=== PATIENT | female | born 2005 | race Caucasian/White ===

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

== ENCOUNTER 2025-02-18 16:49 | Emergency (ER) | payer BC ==
[2025-02-18 17:06] VITALS: RESP 18; TEMP 98.3
[2025-02-18 18:33] LABS: Mucus,Urine Few /hpf; RBC,Urine 8 /hpf (0-5); Squamous Epithelial Cell,Urine 8 /hpf (0-4); WBC,Urine >182 /hpf (0-5)
[2025-02-18 18:35] LABS: Appearance,Urine Turbid (Clear); Color,Urine Dark Orange
--- NOTE | 2025-02-18 19:12 | US ---
EXAMINATION TYPE: US abd limited kidneys/bladder DATE OF EXAM: 02/18/2025 COMPARISON: NONE CLINICAL INDICATION: Female, 19 years old with history of ruq pain; back pain/ bladder pain TECHNIQUE: Grayscale and color Doppler imaging of the right upper quadrant including the kidneys and urinary bladder. FINDINGS: EXAM MEASUREMENTS: Liver Length: 16.0 cm WNL (Fabian lobe) Gallbladder Wall: 0.1 cm CBD: 0.2 cm Right Kidney: 9.9x5.0x5.0 cm Left Kidney: 10.1x4.6x4.4 cm Pancreas: Tail obscured by overlying bowel gas Liver: wnl Gallbladder: contracted, wnl as best visualized CBD: wnl Right Kidney: wnl Left Kidney: wnl Bladder: limited examination due to undistended bladder, however, the wall may be thickened and exhi bits hypervascularity. Correlate with urinalysis ?bladder infection? [employer] NOTES: IMPRESSION: Thickened bladder wall with vascularity correlate with urinalysis. No other evidence for acute abdominal process. [facility], , 02/18/2025 7:10 PM
[2025-02-18] MEDS: SODIUM CHLORIDE 0.9% 1,000 ML IV ONE (19:24)
[2025-02-18] MEDS: ONDANSETRON 4 MG/2 ML VIAL IVP STA (19:24)
[2025-02-18] MEDS: KETOROLAC 15 MG/ML 1 ML VIAL IVP STA (19:24)
--- NOTE | 2025-02-18 19:24 | ED ---
General Adult HPI - General Chief complaint: Abdominal Pain Stated complaint: abd pain, Back pain, nausea Time Seen by Provider: 02/18/25 18:01 Source: patient, RN notes reviewed, old records reviewed Mode of arrival: ambulatory Limitations: no limitations - History of Present Illness Initial comments: Patient is a 19-year-old female presents emergency department complaining of abdominal pain with dysuria. Has a history of recurrent UTIs and thinks that might be going on but is uncertain if this is a kidney infection. Also is concerned regarding her gallbladder she is having intermittent right upper quadrant abdominal pain. Denies any vaginal discharge or bleeding. Does not believe she is . Denies any nausea or vomiting. States that the pain started again yesterday and is got worse today. Endorses some intermittent nausea but no emesis. Denies diarrhea. Denies constipation. Denies any abdominal surgeries. Presents for further evaluation at this time. - Related Data Previous Rx's Medication Instructions Recorded Levofloxacin [Levaquin] 500 mg PO DAILY 5 Days #5 tab 02/06/24 Ondansetron Odt [Zofran Odt] 4 mg PO Q8HR PRN #15 tab 02/06/24 Phenazopyridine [Pyridium] 200 mg PO TID PRN #9 tablet 02/06/24 Ciprofloxacin HCl [Cipro] 500 mg PO DAILY 5 Days #5 tab 02/18/25 Allergies Allergy/AdvReac Type Severity Reaction Status Date / Time Penicillins AdvReac Anaphylaxis Verified 02/18/25 17:06 Review of Systems ROS Statement: Those systems with pertinent positive or pertinent negative responses have been documented in the HPI. Review of Systems: CONST: Denies fever EYES: Denies blurry vision ENT: Denies nasal congestion C/V: Denies Chest pain RESP: Denies shortness of breath GI: Endorses abdominal pain : Endorses dysuria SKIN: Denies rash. MSK: Denies joint pain. NEURO: Denies headache ROS Other: All systems not noted in ROS Statement are negative. Past Medical History Past Medical History: No Reported History History of Any Multi-Drug Resistant Organisms: None Reported Past Surgical History: No Surgical Hx Reported Past Psychological History: Depression Smoking Status: Never smoker Past Alcohol Use History: None Reported Past Drug Use History: None Reported General Exam - General Exam Comments Initial Comments: General: Appears in no acute distress. HEAD: Normal with no signs of head trauma. EYES: EOMI ENT: Hearing grossly intact RESPIRATORY: Clear breath sounds bilaterally. No wheezes, rales, or rhonchi. C/V: Regular rate and rhythm. S1 and S2 auscultated, peripheral pulses 2+ and intact throughout ABD: Abdomen soft, nondistended. Mildly tender to palpation in the suprapubic region. No significant tenderness palpation right upper quadrant. No flank tenderness. No guarding. No rebound tenderness. No peritoneal signs. No CVA tenderness to percussion. EXT: Normal range of motion, no obvious deformity SKIN: No rashes or lesions observed on exposed skin. NEURO: Alert and oriented x 4. Limitations: no limitations Course Vital Signs 02/18/25 02/18/25 17:05 19:54 Temperature 98.3 F Pulse Rate 82 74 Respiratory 18 18 Rate Blood Pressure 115/78 111/80 O2 Sat by Pulse 99 100 Oximetry Medical Decision Making - Medical Decision Making Was pt. sent in by a medical professional or institution (, PA, [employer], urgent care, hospital, or fpc...) When possible be specific @ -No Did you speak to anyone other than the patient for history (EMS, parent, family, police, friend...)? What history was obtained from this source @ -No Did you review nursing and triage notes (agree or disagree)? Why? @ -I reviewed and agree with nursing and triage notes Were old charts reviewed (outside hosp., previous admission, EMS record, old EKG, old radiological studies, urgent care reports/EKG's, fpc records)? Report findings @ -No old charts were reviewed Differential Diagnosis (chest pain, altered mental status, abdominal pain women, abdominal pain men, vaginal bleeding, weakness, fever, dyspnea, syncope, headache, dizziness, GI bleed, back pain, seizure, CVA, palpatations, mental health, musculoskeletal)? @ -Differential Abdominal Pain Women: Appendicitis, Cholecystitis, diverticulosis, ischemic bowel, pancreatitis, hepatitis, UTI, gastroenteritis, AAA, incarcerated hernia, bowel obstruction, constipation, inflammatory bowel, hepatitis, peptic ulcer disease, splenic infarction, perforated viscus, vulvitis, ovarian torsion, PID, kidney stone, placenta abruption, this is not meant to be an all-inclusive list EKG interpreted by me (3pts min.). @ -None done X-rays interpreted by me (1pt min.). @ -None done CT interpreted by me (1pt min.). @ -None done U/S interpreted by me (1pt. min.). @ -Ultrasound of the abdomen negative for any obvious acute gallbladder pathology. Patient does have some bladder wall thickening suggestive of cystitis. No other obvious finding. What testing was considered but not performed or refused? (CT, X-rays, U/S, labs)? Why? @ -Considered laboratory studies to look at function of abdominal organs. Patient initially was amenable to obtaining IV start with labs however she decided against it and does not want an IV. I believe this is reasonable. What meds were considered but not given or refused? Why? @ -None Did you discuss the management of the patient with other professionals (professionals i.e. , PA, [employer], lab, RT, psych nurse, social secretary, bioprocessing manufacturing technician, teacher, preventive medicine officer, family caseworker)? Give summary @ -No Was smoking cessation discussed for >3mins.? @ -No Was critical care preformed (if so, how long)? @ -No Were there social determinants of health that impacted care today? How? (Homelessness, low income, unemployed, alcoholism, drug addiction, transportation, low edu. Level, literacy, decrease access to med. care, fci, rehab)? @ -No Was there de-escalation of care discussed even if they declined (Discuss DNR or withdrawal of care, Hospice)? DNR status @ -No What co-morbidities impacted this encounter? (DM, HTN, Smoking, COPD, CAD, Cancer, CVA, ARF, Chemo, Hep., AIDS, mental health diagnosis, sleep apnea, morbid obesity)? @ -None Was patient admitted / discharged? Hospital course, mention meds given and route, prescriptions, significant lab abnormalities, going to OR and other pertinent info. @ -Patient presents for what is likely UTI versus possible pyelonephritis. She is having dysuria with some worsening suprapubic abdominal discomfort with intermittent back pain. Has a history of this. She is also worried regarding her gallbladder. Will obtain ultrasounds of the bladder, kidneys, gallbladder. We also obtain abdominal laboratory studies. She will be symptomatically treated with IV fluids and analgesia medications. She was in agreement this plan. Vitals are within acceptable limits. Patient who was initially amenable to obtaining laboratory studies changed her mind and does not want an IV started. I am agreeable. Will obtain urine studies and ultrasounds. Urinalysis concerning for UTI. She is not . Ultrasounds remarkable for likely cystitis. No evidence of gallbladder pathology. I update the patient. She is resting comfortably. She will be started on ciprofloxacin. Urine culture sent. She will be given a dose of ODT Zofran as well as a starter pack. She was in agreement this plan. She will be discharged home at this time. I will provide the patient with a prescription for ciprofloxacin. I instructed the patient to follow up with their PCP in the next 1-3 days.. I explained that the patient should return to the emergency department if they experience any worsening symptoms. Strict return precautions were discussed with the patient. The patient expressed understanding of these instructions. I answered all questions that the patient had. The patient was discharged home in good condition with their prescriptions and follow up information. Undiagnosed new problem with uncertain prognosis? @ -No Drug Therapy requiring intensive monitoring for toxicity (Heparin, Nitro, Insulin, Cardizem)? @ -No Were any procedures done? @ -No Diagnosis/symptom? @ -UTI Acute, or Chronic, or Acute on Chronic? @ -Acute on chronic Uncomplicated (without systemic symptoms) or Complicated (systemic symptoms)? @ -Uncomplicated Side effects of treatment? @ -No Exacerbation, Progression, or Severe Exacerbation? @ -No Poses a threat to life or bodily function? How? (Chest pain, [place], NH, pneumonia, PE, COPD, DKA, ARF, appy, cholecystitis, CVA, Diverticulitis, Homicidal, Suicidal, threat to staff... and all critical care pts) @ -Unlikely at this time - Lab Data Lab Results 02/18/25 02/18/25 Range/Units 18:18 18:18 Urine Color Dark [place] Urine Appearance Turbid H (Clear) Urine RBC 8 H (0-5) /hpf Urine WBC >182 H (0-5) /hpf Urine WBC Clumps Many H (None) /hpf Ur Squamous Epith Cells 8 H (0-4) /hpf Urine Mucus Few H (None) /hpf Urine HCG, Qual Not Detected (Not Detectd) Disposition Clinical Impression: UTI (urinary tract infection) Disposition: HOME SELF-CARE Condition: Good Prescriptions: Ciprofloxacin HCl [Cipro] 500 mg PO DAILY 5 Days #5 tab Is patient prescribed a controlled substance at d/c from ED?: No Referrals: None,Stated [Primary Care Provider] - 1-2 days Forms: PH Area PCPs Time of Disposition: 19:24
[2025-02-18] MEDS: CIPROFLOXACIN HCL 500 MG TAB PO STA (19:52)
[2025-02-18] MEDS: ONDANSETRON ODT 4 MG TAB PO STA (19:52)
[2025-02-18] MEDS: ONDANSETRON 4 MG ODT STARTER PACK 2 TAB BTL PO STA (19:52)
[2025-02-18 19:56] VITALS: BP 111/80; PULSE 74
== END 2025-02-18 19:56 | disposition home or self-care (01) ==
LOC: EC 16:49
DX: N39.0 Urinary tract infection, site not specified (principal); Z88.0 Allergy status to penicillin
CPT/HCPCS: 81001; 81025; 87086; 76705; 76770; 99284; S0119